=== PATIENT | male | born 2000 | race African-American/Black ===

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

== ENCOUNTER 2018-07-10 20:27 | Emergency (ER) | payer OTHER ==
[~2018-07-10] VITALS: Ht 167.6 cm; Wt 73.0 kg
[~2018-07-10 20:27] MED LIST changes: +ZOFRAN ODT4 MG DISSOLVE
[2018-07-10 23:19] VITALS: BP 153/63
== END 2018-07-10 23:20 | disposition home or self-care (01) ==
LOC: ER 20:27
DX: S61.401A Unspecified open wound of right hand, initial encounter (principal); F17.210 Nicotine dependence, cigarettes, uncomplicated; W20.8XXA Other cause of strike by thrown, projected or falling object, initial encounter; Y92.89 Other specified places as the place of occurrence of the external cause; Y93.89 Activity, other specified; Y99.8 Other external cause status

== ENCOUNTER 2019-09-05 14:19 | Emergency (ER) | payer OTHER ==
[~2019-09-05] VITALS: Ht 167.6 cm; Wt 70.3 kg
[2019-09-05 15:02] LABS: ABSOLUTE NEUTROPHILS 3.2 thou/uL (1.4-8.2); BASOPHILS 0.7 % (0.0-2.0); HEMATOCRIT 44.5 % (42.0-52.0); HEMOGLOBIN 14.8 gm/dL (14.0-18.0); LYMPHOCYTES 22.7 % (24.0-44.0); MCH 28.1 pg (26.0-34.0); MCHC 33.2 g/dL (28.0-37.0); MCV 84.6 fL (80.0-100.0); MONOCYTES 6.7 % (1.0-8.0); PLATELET COUNT 147 thou/uL (150-400); POLYS 68.9 % (36.0-66.0); RBC 5.26 mil/uL (4.50-6.00); RDW 13.9 % (10.5-14.5); WBC 4.7 thou/uL (4.0-11.0)
[2019-09-05 15:12] LABS: ANION GAP 10 mmol/L (7-16); BUN 11 mg/dL (7-18); CALCIUM 9.1 mg/dL (8.5-10.1); CHLORIDE 100 mmol/L (98-107); CO2 25 mmol/L (21-32); CREATININE 1.1 mg/dL (0.7-1.3); GLUCOSE 99 mg/dL (74-106); POTASSIUM 3.8 mmol/L (3.5-5.1); SODIUM 135 mmol/L (136-145)
[2019-09-05 15:19] LABS: ALBUMIN 4.3 g/dL (3.4-5.0); SALICYLATE 3.7 mg/dL (2.8-20.0); SGOT 23 U/L (15-37); SGPT 24 U/L (30-65); TOTAL BILIRUBIN 0.7 mg/dL (0.2-1.0); TOTAL PROTEIN 8.1 g/dL (6.4-8.2)
[2019-09-05 15:25] LABS: URINE BILIRUBIN NEGATIVE (Negative); URINE BLOOD NEGATIVE (Negative); URINE CLARITY CLEAR; URINE COLOR YELLOW; URINE GLUCOSE-RANDOM* NEGATIVE (Negative); URINE KETONES TRACE (Negative); URINE LEUKOCYTES-REFLEX NEGATIVE (Negative); URINE NITRITE-REFLEX NEGATIVE (Negative); URINE PROTEIN (DIPSTICK) NEGATIVE (Negative)
[2019-09-05 15:36] LABS: AMP/METHAMP Negative (Negative); BARBITURATES Negative (Negative); BENZODIAZEPINES Negative (Negative); COCAINE Negative (Negative); METHADONE Negative (Negative); OPIATES Negative (Negative); PCP Negative (Negative)
[2019-09-05 17:50] VITALS: BP 126/71
--- NOTE | 2019-09-06 08:48 | EKG ---
[facility] [place] [address] ELECTROCARDIOGRAM REPORT Name: TYRONE ELLER Room #: DEP [facility].#: [id number] Admission: 09/05/19 Attend Phys: Discharge: 09/05/19 Date of : [birth year] Report #: [id number] THIS REPORT FOR: cc: SAUD - Mayra family physician/PCP SAUD - Mayra family physician/PCP Sai Nelson MD [facility] THIS REPORT FOR: //name// [facility] ED Test Date: 2019-09-05 Test Time: 15:41:08 Pat Name: TYRONE ELLER Department: Room: Gender: Hotel Night Auditor: [facility] : 2000 Requested By: Katey Lopes Order Number: [id number] MD: Sai Nelson Measurements Intervals [place] Rate: 65 P: 42 TN: 138 QRS: 56 QRSD: 90 T: 55 QT: 389 QTc: 405 Interpretive Statements Sinus rhythm ST elev, probable normal early repol pattern No previous ECG available for comparison Electronically Signed On 09-06-2019 8:48:03 CDT by Sai Nelson [email or web address] <ELECTRONICALLY SIGNED> By: Sai Nelson MD, [facility] 09/06/19 0848 1541 1541 Sai Nelson MD, [facility] /EPI
== END 2019-09-05 17:50 | disposition home or self-care (01) ==
LOC: ER 14:19
PROVIDERS: Physician Assistant
DX: F32.9 Major depressive disorder, single episode, unspecified (principal); F43.9 Reaction to severe stress, unspecified; F17.210 Nicotine dependence, cigarettes, uncomplicated

== ENCOUNTER 2019-12-26 13:34 | Emergency (ER) | payer OTHER ==
[~2019-12-26] VITALS: Ht 167.6 cm; Wt 68.5 kg
[2019-12-26 14:14] LABS: MCH 28.6 pg (26.0-34.0); WBC 6.4 thou/uL (4.0-11.0)
[2019-12-26 14:15] LABS: ABSOLUTE NEUTROPHILS 3.5 thou/uL (1.4-8.2); BASOPHILS 0.6 % (0.0-2.0); EOSINOPHILS 6.4 % (0.0-3.0); HEMATOCRIT 50.2 % (42.0-52.0); HEMOGLOBIN 16.6 gm/dL (14.0-18.0); LYMPHOCYTES 28.3 % (24.0-44.0); MCV 86.7 fL (80.0-100.0); MONOCYTES 9.4 % (1.0-8.0); PLATELET COUNT 130 thou/uL (150-400); POLYS 55.3 % (36.0-66.0); RBC 5.79 mil/uL (4.50-6.00); RDW 14.2 % (10.5-14.5)
--- NOTE | 2019-12-26 14:20 | EKG ---
[facility] [place] [address] ELECTROCARDIOGRAM REPORT Name: TYRONE ELLER Room #: PRE M.R.#: [id number] Admission: Attend Phys: Discharge: Date of : [birth year] Report #: [id number] THIS REPORT FOR: cc: SAUD Nunez family physician/PCP SAUD Nunez family physician/PCP Serafin lGass MD [facility] ~ THIS REPORT FOR: //name// [facility] ED Test Date: 2019-12-26 Test Time: 13:43:14 Pat Name: TYRONE ELLER Department: Room: Gender: M Leg Man: [place] : 2000 Requested By: Vicente Nieves Order Number: [id number] MD: Serafin Glass Measurements Intervals [place] Rate: 61 P: 68 [place]: 142 QRS: 75 QRSD: 90 T: 66 QT: 395 QTc: 398 Interpretive Statements Sinus rhythm J Point elev, probable normal early repol pattern Compared to ECG 09/05/2019 15:41:08 No significant changes Electronically Signed On 12-26-2019 14:20:33 [employer] by Serafin Glass [email or web address] <ELECTRONICALLY SIGNED> By: Serafin Glass MD, FACC 12/26/19 1420 1343 1343 Serafin Glass MD, FAC /EPI
[2019-12-26 14:33] LABS: ANION GAP 7 mmol/L (7-16); BUN 13 mg/dL (7-18); CALCIUM 9.6 mg/dL (8.5-10.1); CHLORIDE 101 mmol/L (98-107); CO2 29 mmol/L (21-32); CREATININE 1.1 mg/dL (0.7-1.3); GLUCOSE 87 mg/dL (74-106); POTASSIUM 3.9 mmol/L (3.5-5.1); SODIUM 137 mmol/L (136-145)
[2019-12-26 14:39] LABS: TROPONIN-I <0.06 ng/mL (<0.06)
[2019-12-26 15:03] LABS: URINE BILIRUBIN NEGATIVE (Negative); URINE BLOOD NEGATIVE (Negative); URINE CLARITY CLEAR; URINE COLOR YELLOW; URINE GLUCOSE-RANDOM* NEGATIVE (Negative); URINE KETONES NEGATIVE (Negative); URINE LEUKOCYTES-REFLEX NEGATIVE (Negative); URINE NITRITE-REFLEX NEGATIVE (Negative); URINE PROTEIN (DIPSTICK) NEGATIVE (Negative); URINE UROBILINOGEN 0.2 E.U./dl (0.2-1.0)
[2019-12-26 15:12] LABS: AMP/METHAMP Negative (Negative); BARBITURATES Negative (Negative); BENZODIAZEPINES Negative (Negative); COCAINE Negative (Negative); METHADONE Negative (Negative); OPIATES Negative (Negative); PCP Negative (Negative)
[2019-12-26 16:16] VITALS: BP 121/71
[2019-12-26] MEDS ORDERED: VISTARIL 25 MG25 M1 PO (16:16)
[2019-12-26] MEDS ORDERED: KEFLEX500 M1 PO (16:16)
== END 2019-12-26 16:16 | disposition home or self-care (01) ==
LOC: ER 13:34
PROVIDERS: Nurse Practitioner
DX: L03.113 Cellulitis of right upper limb (principal); R07.89 Other chest pain; R10.9 Unspecified abdominal pain; F17.210 Nicotine dependence, cigarettes, uncomplicated

== ENCOUNTER 2020-02-22 14:31 | Emergency (ER) | payer OTHER ==
[~2020-02-22] VITALS: Ht 172.7 cm; Wt 72.6 kg
[~2020-02-22 14:31] MED LIST changes: +KEFLEX500 M1 PO; +VISTARIL 25 MG25 M1 PO
[2020-02-22] MEDS ORDERED: DOXYCYCLINE 10100 MG PO (15:50)
[2020-02-22 16:07] VITALS: BP 129/66
== END 2020-02-22 16:07 | disposition home or self-care (01) ==
LOC: ER 14:31
DX: Z20.2 Contact with and (suspected) exposure to infections with a predominantly sexual mode of transmission (principal); F17.210 Nicotine dependence, cigarettes, uncomplicated; Z20.828 Contact with and (suspected) exposure to other viral communicable diseases